=== PATIENT | female | born 1985 | race Caucasian/White ===

== ENCOUNTER 2016-09-24 21:47 | Emergency (ER) | payer OTHER ==
[2016-09-24 21:59] VITALS: BP 127/88
--- NOTE | 2016-09-24 22:02 | ED Physician Documentation ---
General Adult - HISTORIAN Historian: patient - HPI Stated Complaint: ? High blood Pressure Chief Complaint: General Adult Additional Information: Took BP 3x today with her mother's machine and diastoli reading was 118 x3. Has some tingling in right forearm and thought she was having a stroke. Has tightness in right shoulder and upper arm for a few days. Chronic lumbar back pain is being treated with muscle relaxants and tylenol, but still hurts. Appt with pain specialist again at the end of September. - ROS CONST: no problems - PAST HX Past History: hypertension, other (chronic back pain, bipolar disease, \\) Allergies/Adverse Reactions: Allergies Allergy/AdvReac Type Severity Reaction Status Date / Time Sulfa (Sulfonamide Allergy Intermediate Hives Verified 10/10/15 16:32 Antibiotics) [Sulfa(Sulfonamide Antibiotics)] acetaminophen [From Percocet] AdvReac Nausea/Vomi Verified 10/10/15 16:32 ting oxycodone HCl [From Percocet] AdvReac Nausea/Vomi Verified 10/10/15 16:32 ting tramadol AdvReac Nausea/Vomi Verified 10/10/15 16:32 ting Home Medications: Ambulatory Orders Medication Instructions Recorded Gabapentin 100 mg PO 10/10/15 CloNIDine HCL [Catapress] 0.1 mg PO BID 09/24/16 Trazodone HCl [Desyrel] 100 mg PO HS 09/24/16 - SOCIAL HX Smoking History: non-smoker - FAMILY HX Family History: No - VITAL SIGNS Vital Signs: Vital Signs Temp Pulse Resp BP Pulse Ox 98.1 F 76 18 127/88 98 09/24/16 21:50 09/24/16 21:50 09/24/16 21:50 09/24/16 21:50 09/24/16 21:50 - REVIEWED ASSESSMENTS Nursing Assessment Reviewed: Yes Vitals Reviewed: Yes General Adult Physical Exam - PHYSICAL EXAM GENERAL APPEARANCE: no distress EENT: eye inspection normal, ENT inspection normal, GIULIANA NECK: normal inspection, supple RESPIRATORY: no resp distress, breath sounds normal CVS: reg rate & rhythm, heart sounds normal RECTAL: deferred BACK: normal inspection, other (lumbar paraspinous tenderness with palpation) SKIN: warm/dry, normal color EXTREMITIES: normal range of motion (gait), no evidence of injury NEURO: CN's nml as tested, motor nml, sensation nml Discharge Clincal Impression: Back pain Additional Instructions: Take the BP machine to your next doctor appointment to have it checked for accuracy. Home Medications: Ambulatory Orders Gabapentin 100 mg PO 10/10/15 CloNIDine HCL [Catapress] 0.1 mg PO BID 09/24/16 Trazodone HCl [Desyrel] 100 mg PO HS 09/24/16 Condition: Good Disposition: 01 HOME, SELF-CARE Decision to Admit: NO Decision Time: 22:07
== END 2016-09-24 22:10 | disposition home or self-care (01) ==
LOC: ED 21:47
DX: M54.9 Dorsalgia, unspecified (principal)
CPT/HCPCS: 99282; 99283

== ENCOUNTER 2016-11-20 15:00 | Outpatient (CLI) | payer OTHER ==
[2016-11-20 15:48] LABS: eGFR (African) > 60; eGFR (Non-African) > 60
== END 2016-11-20 15:02 ==
LOC: LAB 15:00
PROVIDERS: ATTEND Physician Assistant
DX: Z00.00 Encounter for general adult medical examination without abnormal findings (principal)
CPT/HCPCS: 36415; 80053

== ENCOUNTER 2017-01-11 07:23 | Emergency (ER) | payer OTHER ==
[2017-01-11 07:50] VITALS: BP 165/77
--- NOTE | 2017-01-11 07:51 | ED Physician Documentation ---
General Adult - HISTORIAN Historian: patient - HPI Chief Complaint: General Adult Onset: days ago (3) Further Comments: yes (31 year old female patient presents with complaints of "redness" on right forearm. Unsure of cause. Only answering partial ROS. Very short and anxious.) - ROS CONST: no problems EYES/ENT: none CVS/RESP: denies: chest pain, shortness of breath GI/: none MS/SKIN/LYMPH: none - PAST HX Past History: other (chronic back pain, bipolar, HTN) Allergies/Adverse Reactions: Allergies Allergy/AdvReac Type Severity Reaction Status Date / Time Sulfa (Sulfonamide Allergy Intermediate Hives Verified 10/10/15 16:32 Antibiotics) [Sulfa(Sulfonamide Antibiotics)] Penicillins Allergy Hives Verified 01/11/17 07:54 acetaminophen [From Percocet] AdvReac Nausea/Vomi Verified 10/10/15 16:32 ting oxycodone HCl [From Percocet] AdvReac Nausea/Vomi Verified 10/10/15 16:32 ting tramadol AdvReac Nausea/Vomi Verified 10/10/15 16:32 ting trazodone AdvReac Hives Verified 01/11/17 07:54 Home Medications: Ambulatory Orders Medication Instructions Recorded CloNIDine HCL [Catapress] 0.1 mg PO BID 09/24/16 Buspirone HCl [Buspar] 10 mg PO BID u2 11/20/16 Clonidine HCl 0.1 mg PO BID u2 11/20/16 Gabapentin 1,200 mg PO TID u2 11/20/16 Quetiapine Fumarate [Seroquel] 25 mg PO HS u2 11/20/16 Sertraline HCl [Zoloft] 150 mg PO DAILY u2 11/20/16 Bacitracin 1 gm OP BID #1 oint...g. 01/11/17 - SOCIAL HX Smoking History: cigarettes - FAMILY HX Family History: No - VITAL SIGNS Vital Signs: Vital Signs Temp Pulse Resp BP Pulse Ox 127/88 09/24/16 22:10 - REVIEWED ASSESSMENTS Nursing Assessment Reviewed: Yes Vitals Reviewed: Yes Progress - Progress Progress: Patient states "I have not been bite by anything". "[facility] have [facility] the [facility]". Patient refused complete exam. Arm examined. BBS clear. Insect/mosiquito bite noted on right medial forearm with mild erythema. Patient reported allergy to PCN as "stopped breathing and swollen up". Patient reported to nursing PCN caused hives. Will not treat with cephalosporin due to contradictory information and mild erythema. General Adult Physical Exam - PHYSICAL EXAM GENERAL APPEARANCE: mild distress EENT: eye inspection normal, GIULIANA RESPIRATORY: no resp distress, breath sounds normal CVS: reg rate & rhythm SKIN: warm/dry, normal color, other (right medial forearm with insect bite likely misquito and 2cm x 2 cm area of mild erythema. ) NEURO: oriented X3 Discharge Clincal Impression: Insect bite Prescriptions: Bacitracin 1 gm OP BID #1 oint...g. Referrals: Tye Snell MD [Primary Care Provider] - 2 Days Additional Instructions: supervisor throwing department your prescription and start it today Home Medications: Ambulatory Orders CloNIDine HCL [Catapress] 0.1 mg PO BID 09/24/16 Buspirone HCl [Buspar] 10 mg PO BID u2 11/20/16 Clonidine HCl 0.1 mg PO BID u2 11/20/16 Gabapentin 1,200 mg PO TID u2 11/20/16 Quetiapine Fumarate [Seroquel] 25 mg PO HS u2 11/20/16 Sertraline HCl [Zoloft] 150 mg PO DAILY u2 11/20/16 Bacitracin 1 gm OP BID #1 oint...g. 01/11/17 Condition: Stable Disposition: 01 HOME, SELF-CARE Decision to Admit: NO Decision Time: 07:50
== END 2017-01-11 08:02 | disposition home or self-care (01) ==
LOC: ED 07:23 → EDSTATUS 07:24 → ED 08:02
DX: S40.861A Insect bite (nonvenomous) of right upper arm, initial encounter (principal); W57.XXXA Bitten or stung by nonvenomous insect and other nonvenomous arthropods, initial encounter; Y93.9 Activity, unspecified; Y99.9 Unspecified external cause status; F17.210 Nicotine dependence, cigarettes, uncomplicated

== ENCOUNTER 2017-08-05 09:57 | Outpatient (CLI) | payer OTHER | END 2017-08-05 10:39 | LOC: OUT 09:57 | PROVIDERS: ATTEND General Practice | DX: Z01.419 Encounter for gynecological examination (general) (routine) without abnormal findings (principal) | CPT/HCPCS: 99213 ==

== ENCOUNTER 2019-08-14 06:12 | Emergency (ER) | payer OTHER ==
[2019-08-14 06:31] VITALS: BP 132/77
--- NOTE | 2019-08-14 06:53 | ED Physician Documentation ---
Neck Injury/Pain - HISTORIAN Historian: patient - HPI Stated Complaint: neck pain Chief Complaint: Neck Pain Onset: days ago (7) Duration: continues in ED Where: home Other Injuries: neck Severity: severe Quality: burning, sharp Associated Symptoms: denies: fever Exacerbated By: nothing Relieved By: nothing - ROS NEURO/PSYCH: denies: difficulty with speech EYES/ENT: denies: problems with vision CVS/RESP: denies: chest pain, shortness of breath CONST: no problems GI/: denies: nausea, vomiting MS/SKIN/LYMPH: none - PAST HX Surgeries/Procedures: back surgery (L5-S1 x 3 ) CT/MRI: No - SOCIAL HX Smoking History: non-smoker Alcohol Use: none Drug Use: none - FAMILY HX Family History: none - REVIEWED ASSESSMENT Nursing Assessment Reviewed: Yes Vitals Reviewed: Yes <Izabela Ivan - Last Filed: 08/14/19 06:50> - PAST HX Past History: neck pain (CHRONIC) <Destinee Burton - Last Filed: 08/14/19 08:14> - HPI Additional Information: Patient presents to ED with a 1 week history of left neck pain, radiating down left arm. Patient states she has 2 slipped discs in her neck but states she is not a surgical candidate. She reports taking her Zanaflex and Tylenol without improvement. (Izabela Ivan) - PAST HX Allergies/Adverse Reactions: Allergies Allergy/AdvReac Type Severity Reaction Status Date / Time Sulfa (Sulfonamide Allergy Intermediate Hives Verified 08/14/19 06:29 Antibiotics) [Sulfa(Sulfonamide Antibiotics)] Penicillins Allergy Hives Verified 08/14/19 06:29 oxycodone HCl [From Percocet] AdvReac Nausea/Vomi Verified 08/14/19 06:29 ting tramadol AdvReac Nausea/Vomi Verified 08/14/19 06:29 ting trazodone AdvReac Hives Verified 08/14/19 06:29 Home Medications: Ambulatory Orders Medication Instructions Recorded Aripiprazole [Abilify] 15 mg PO DAILY 08/14/19 Baclofen [Liorasal] 10 mg PO BID #20 tablet 08/14/19 Bupropion HCl [Wellbutrin Xl] 300 mg PO DAILY 08/14/19 Divalproex Sodium [Depakote] 500 mg PO BID 08/14/19 Methylprednisolone [Medrol] 4 mg PO DAILY #1 tab.ds.pk 08/14/19 Sertraline HCl 200 mg PO DAILY 08/14/19 Tizanidine HCl [Zanaflex] 4 mg PO QID 08/14/19 - VITAL SIGNS Vital Signs: Vital Signs Temp Pulse Resp BP Pulse Ox 97 F L 87 16 132/77 98 08/14/19 08:02 08/14/19 08:02 08/14/19 08:02 08/14/19 08:02 08/14/19 08:02 Progress <Destinee Burton - Last Filed: 08/14/19 08:14> - Progress Progress: discussed results of old odontoid fracture and she states that she is followed in the pain clinic at [facility]- she states that she is not a candidate for neck surgery due to spinal cord? (Destinee Burton) ED Results Lab/Radiology <Destinee Burton - Last Filed: 08/14/19 08:14> - Radiology Radiology Impressions: Cervical spine, AP, lateral, odontoid and oblique views History: Neck pain. Findings: There is no subluxation or abnormal bone production or destruction. Minimally displaced, chronic appearing type II odontoid fracture is suspected. The vertebral bodies and intervertebral disc spaces are of normal height. Prevertebral soft tissues are normal. Impression: Suspected odontoid fracture. Electronically signed on Aug 14, 2019 7:48:21 AM [employer] SAL[employer]IST by: Amadeo Armenta (Destinee Burton) - Orders Orders: ED Orders Category Date Time Status C SPINE 4 VIEWS OR MORE [RAD] Stat Exams 08/14/19 Completed Ketorolac Tromethamine [Toradol] Med 08/14/19 07:23 Discontinued 60 mg IM NOW ONE Orphenadrine Citrate [Norflex] Med 08/14/19 07:23 Discontinued 60 mg IM NOW ONE Neck Injury/Pain - Physical Exam General Appearance: no acute distress, alert EENT: pharynx nml Neck: muscle spasm (upper traps R>L), decreased ROM Nexus Criteria: Nexus criteria neg Back: non-tender Respiratory: chest non-tender, breath sounds nml CVS: heart sounds nml Abdomen: non-tender Skin: warm/dry Extremities: non-tender, normal range of motion Neuro/Psych: oriented x3, mood/affect nml <Izabela Ivan - Last Filed: 08/14/19 06:50> Discharge <Izabela Ivan - Last Filed: 08/14/19 06:50> Decision to Admit: NO Decision Time: 08:04 <Destinee Burton - Last Filed: 08/14/19 08:14> Clincal Impression: Type II fracture of odontoid process Prescriptions: Baclofen [Liorasal] 10 mg PO BID #20 tablet Methylprednisolone [Medrol] 4 mg PO DAILY #1 tab.ds.pk Referrals: Tye Snell MD [Primary Care Provider] - 2 Days Additional Instructions: Minimally displaced, chronic appearing type II odontoid fracture is suspected. Take Baclofen 10 mg by mouth twice a day for muscle spasms Take Medrol dose pack as directed Ibuprofen 600mg by mouth every 6-8 hours as needed Use heating pad, Bengay, Icy hot, biofreeze, Salonpas Will send referral to [facility] Follow up with your Pain specialist Condition: Good Disposition: 01 HOME, SELF-CARE
[2019-08-14] MEDS: KETOROLAC TROMETHAMINE 60 MG/2 ML VIAL IM ONE (07:30)
[2019-08-14] MEDS: ORPHENADRINE CITRATE 60 MG/2 ML ML IM ONE (07:30)
--- NOTE | 2019-08-14 07:52 | Diagnostic Imaging Report ---
PATIENT MR#: [id number] PATIENT PATIENT NAME: SERGIO HAMMOND DATE OF : 1985 REFERRING PHYSICIAN: Destinee Burton EXAM DATE: 08/14/2019 ACCESSION NUMBER: [id number] EXAM DESCRIPTION: C SPINE 4 VIEWS OR MORE Cervical spine, AP, lateral, odontoid and oblique views History: Neck pain. Findings: There is no subluxation or abnormal bone production or destruction. Minimally displaced, ch ronic appearing type II odontoid fracture is suspected. The vertebral bodies and intervertebral disc spaces are of no rmal height. Prevertebral soft tissues are normal. Impression: Suspected odontoid fracture. Read by: Dr. Amadeo Armenta Transcribed by: Transcribed Date: Electronically signed by: Dr. Amadeo Armenta Date signed: 08/14/2019 7:52:23 AM
== END 2019-08-14 08:02 | disposition home or self-care (01) ==
LOC: ED 06:12
DX: S12.110A Anterior displaced Type II dens fracture, initial encounter for closed fracture (principal); X58.XXXA Exposure to other specified factors, initial encounter; Y92.009 Unspecified place in unspecified non-institutional (private) residence as the place of occurrence of the external cause
CPT/HCPCS: 96372; 99284; J1885; J2360